=== PATIENT | female | born 1975 | race Caucasian/White ===

== ENCOUNTER 2017-09-10 07:37 | Emergency (ER) | payer MEDICAID ==
[2017-09-10] MEDS: DEXAMETHASONE 10 MG/ML 1 ML INJ IM (09:56)
[2017-09-10] MEDS: ALBUTEROL 0.5% (NEB) 2.5 MG/0.5 ML AMP INH ×2 (10:11→12:35)
[2017-09-10] MEDS: IPRATROPIUM (NEB) 0.5 MG/2.5 ML AMP INH (10:11)
[2017-09-10] MEDS: LIDOCAINE/MYLANTA 40 ML BTL PO (11:54)
== END 2017-09-10 14:51 | disposition home or self-care (01) ==
LOC: FTE 07:37
DX: J20.9 Acute bronchitis, unspecified (principal); R06.02 Shortness of breath
CPT/HCPCS: 71045; 87400; 93005; 94644; 94645; 96372; 99285-25